=== PATIENT | female | born 1990 | race Asian ===

== ENCOUNTER → 2017-01-08 | Outpatient (CLI) | payer MEDICAID | END | disposition disaster alternative care site (69) | LOC: GAMB 07:52 | DX: S19.9XXA Unspecified injury of neck, initial encounter (principal); M54.2 Cervicalgia; M54.6 Pain in thoracic spine; M79.604 Pain in right leg; M79.605 Pain in left leg; Z91.041 Radiographic dye allergy status; V49.9XXA Car occupant (driver) (passenger) injured in unspecified traffic accident, initial encounter | CPT/HCPCS: A0425; A0427; J2405; J3010 ==